=== PATIENT | male | born 1965 | race Hispanic/Latino ===

== ENCOUNTER 2022-06-13 07:54 | Day surgery (SDC) | payer OTHER ==
[2022-06-11 09:59] LABS: BASOPHILS % (AUTO) 0.8 % (0.0-5.0); EOSINOPHILS % (AUTO) 2.2 % (0.0-8.0); HEMATOCRIT 40.2 % (42-54); MEAN CORPUSCULAR HEMOGLOBIN 30.3 pg (27.0-33.0); MEAN CORPUSCULAR HGB CONC 33.8 g/dL (32.0-36.0); MEAN CORPUSCULAR VOLUME 89.5 fL (79-99); MONOCYTES % (AUTO) 10.5 % (3.0-13.0); NEUTROPHILS % (AUTO) 59.9 % (40.0-77.0); PLATELET COUNT (AUTO) 231 K/uL (130-400); RED BLOOD CELL COUNT(AUTO) 4.49 MIL/uL (4.50-6.20); RED CELL DISTRIBUTION WIDTH 12.1 % (11.0-15.5); WHITE BLOOD COUNT (AUTO) 6.4 K/uL (4.8-10.8)
[2022-06-11 10:07] LABS: POTASSIUM 3.9 mmol/L (3.5-5.1)
[2022-06-12 09:29] VITALS: BP 156/101
[2022-06-13] VITALS (16 sets, daily range): BP systolic 91–157; BP diastolic 50–103
[~2022-06-13] VITALS: Ht 175.3 cm; Wt 88.9 kg
[~2022-06-13 07:54] MED LIST: ACET325T51 PO; CELE-84 PO; FERR-72 PO; FLUO2515O TP; LIDO1ADH82 TP; MESA0.374 PO; OMEG-148 PO; SILD50TA PO
[2022-06-13] MEDS: CEFAZOLIN SODIUM 1 GM VIAL IVP SCH ×3 (09:00→11:03)
[2022-06-13] MEDS ORDERED: LACTATED RINGERS 1000ML 1,000 ML IV ONE (09:02)
[2022-06-13] MEDS ORDERED: SUCCINYLCHOLINE CHLORIDE 20 MG/ML 10 ML VIAL ONE (10:30)
[2022-06-13] MEDS ORDERED: MIDAZOLAM HCL 1 MG/ML 2ML VIAL ONE (10:31)
[2022-06-13] MEDS ORDERED: FENTANYL CITRATE PF 50 MCG/1 ML 2ML VIAL ONE (10:31)
[2022-06-13] MEDS ORDERED: PROPOFOL 10 MG/ML 20ML VIAL IV ONE (10:31)
[2022-06-13] MEDS ORDERED: ROCURONIUM 10MG/1ML SYR 10 MG/ML ML ONE ×2 (10:31→10:32)
[2022-06-13] MEDS ORDERED: ROPIVACAINE 0.5% 5MG/ML 30ML IJ ONE (10:35)
[2022-06-13] MEDS ORDERED: EPHEDRINE SULFATE 50 MG/ML AMPULE ONE (10:48)
[2022-06-13] MEDS ORDERED: HYDR-4060 PO ×2 (13:16→16:06)
[2022-06-13] MEDS ORDERED: GLYCOPYRROLATE 1 MG/5 ML SYRINGE ONE (13:16)
[2022-06-13] MEDS ORDERED: NEOSTIGMINE 5MG/5ML SYR IV ONE (13:16)
[2022-06-13] MEDS ORDERED: CEPH500B PO ×2 (13:16→16:06)
== END 2022-06-13 15:15 | disposition home or self-care (01) ==
LOC: DAH 07:54
PROVIDERS: ATTEND Orthopaedic Surgery
DX: M75.112 Incomplete rotator cuff tear or rupture of left shoulder, not specified as traumatic (principal); M19.012 Primary osteoarthritis, left shoulder; M75.42 Impingement syndrome of left shoulder; M75.22 Bicipital tendinitis, left shoulder; G89.29 Other chronic pain; E66.9 Obesity, unspecified; Z79.01 Long term (current) use of anticoagulants; Z79.899 Other long term (current) drug therapy; Z90.49 Acquired absence of other specified parts of digestive tract; Z98.890 Other specified postprocedural states; Z87.891 Personal history of nicotine dependence; Z68.29 Body mass index [BMI] 29.0-29.9, adult
CPT/HCPCS: 80048; 85025; 87426; 36415; 29827; 64415; 29824; 29826; 76942; A4663; J7030; A4565; J7120; J3010; J0690; J3490 ×2; J2710; J0330; J2250; J2704; J2795; A6204; G0168; A4649 ×3; A4930 ×3; C1713 ×2; A5120; A4215; A4223; A4222; A4221